=== PATIENT | male | born 1960 | race Caucasian/White ===

== ENCOUNTER → 2020-09-29 | Outpatient (CLI) | payer OTHER ==
[~2020-09-29] MED LIST: DICL/MIS50; RABE20TA
--- NOTE | 2020-09-29 09:03 | NUR ---
Notified of positive COVID test.
== END ==
LOC: LABNPT 08:30
PROVIDERS: ATTEND Emergency Medicine
DX: U07.1 COVID-19 (principal)
CPT/HCPCS: 87635

== ENCOUNTER → 2020-10-01 | Outpatient (CLI) | payer OTHER, MEDICARE ==
[~2020-10-01] MED LIST changes: +BAMLANIVIMAB (NON FORM) 700 MG in NS (IVPB) 250 ML IV ONE; +EPINEPHrine INJECTION 1 MG/ML AMP IM PRN; +diphenhydrAMINE 50 MG/ML INJ (BENADRYL) IV PRN
[2020-10-01 12:10] VITALS: BP 155/77
[2020-10-01 14:00] VITALS: BP 155/92
== END ==
LOC: INFUSION 12:21
PROVIDERS: ATTEND Emergency Medicine
DX: U07.1 COVID-19 (principal)